=== PATIENT | male | born 1960 | race Caucasian/White ===

== ENCOUNTER 2016-09-26 17:39 | Emergency (ER) | payer MEDICAID ==
[~2016-09-26] VITALS: Ht 170.2 cm; Wt 75.7 kg
[2016-09-26 17:51] VITALS: BP 160/65; PULSE 105; RESP 18; TEMP 98.5; O2SAT 98
--- NOTE | 2016-09-26 18:00 | NUR ---
Patient to ER bed 1 to gown for evaluation. Side rails up. Report given to Emerson ROSEN.
--- NOTE | 2016-09-26 18:01 | NUR ---
Pt states had PICC line placed for infection 2 weeks ago but has never been back to doctor to follow up for removal. PICC line noted to right upper arm, single lumen,patent, blood return noted. Many layers of pt's home tape present on arrival-soiled, dry, lifting at sides. Pt denies any discomfort to area. No other complaints/injuries per pt or noted.
--- NOTE | 2016-09-26 18:05 | NUR ---
Debra MORROW at bedside examining pt.
--- NOTE | 2016-09-26 18:50 | NUR ---
PICC line dressing changed performed per CRISTHIAN Richardson verbal order. Many layers of pt's home tape removed from site, 2 seperate PICC line dressings noted below, removed. Large amount of tape residue noted to surrounding area w/ multiple areas of skin breakdown & red discolored skin from former home taping sites, [employer] brought to room to assess. Old stat lock removed. No swelling, redness, drainage, or odor noted. Sterile procedure used for dressing change. Chlorahexadine scrub used for 30 secs, antiimicrobal pod placed, new stat locked placed, covered w/ provided transparant dressing. Port changed. Unable to remove all tape residue to arm. Pt tolerated well.
[2016-09-26 19:30] VITALS: BP 140/72; PULSE 96; RESP 18; TEMP 98.6; O2SAT 99
--- NOTE | 2016-09-26 19:30 | NUR ---
Patient given written and verbal discharge instructions and verbalizes understanding. ER MD discussed with patient the results and treatment provided. Patient in stable condition. ID arm band removed. Patient educated on pain management and to follow up with PMD tomorrow. Pain Scale 0/10. Opportunity for questions provided and answered.
== END 2016-09-26 19:30 | disposition home or self-care (01) ==
LOC: SED 17:39
DX: Z45.2 Encounter for adjustment and management of vascular access device (principal); Z48.00 Encounter for change or removal of nonsurgical wound dressing
CPT/HCPCS: 99283